=== PATIENT | female | born 1985 | race Caucasian/White ===

== ENCOUNTER 2020-09-20 10:31 | Outpatient (CLI) | payer OTHER, BC, SELFPAY ==
--- NOTE | 2020-09-20 | ECG_ITS ---
Measurements Intervals [place] Rate: 52 P: -37 NE: 166 QRS: 41 QRSD: 86 T: 47 QT: 412 QTc: 383 Interpretive Statements SINUS BRADYCARDIA BORDERLINE ECG Electronically Signed On 09-20-2020 12:06:47 INTERACTIVE [employer] DES[employer] by Juan Nicholson D.O.
[2020-09-20 11:27] LABS: Hematocrit 36.7 % (37.0-47.0); Hemoglobin 12.4 g/dL (12.0-15.0)
== END 2020-09-20 10:32 | disposition home or self-care (01) ==
PROVIDERS: PCP Internal Medicine; Visit Provider Anesthesiology
DX: Z86.2 Personal history of diseases of the blood and blood-forming organs and certain disorders involving the immune mechanism (principal); Z01.818 Encounter for other preprocedural examination
CPT/HCPCS: 36415; 85014; 85018; 93005

== ENCOUNTER 2020-09-22 01:05 | Day surgery (SDC) | payer OTHER, SELFPAY ==
[2020-09-14 16:29] VITALS: BMI 26.4
--- NOTE | 2020-09-21 15:27 | WPDANESEPPF ---
Anes - Initial Pre Proc Eval Procedure: Operation Date: 09/22/20 07:30 Proposed Procedures p Abdominoplasty - John Liao MD s Liposuction Of Abdomen - John Liao MD s Bilateral Breast Augmentation - John Liao MD Date/Time: 09/21/20 15:27 Surgeon: John Liao MD Pre Op Diagnosis: Micromastia, Skin Laxity Patient Data Age: 35 Gender: F Height: 1.55 m Weight: 63.5 kg Allergies Allergy/AdvReac Type Severity Reaction Status Date / Time metoclopramide [From Reglan] Allergy Intermediate Hyperactive Verified 09/14/20 16:27 morphine Allergy Intermediate Hives Verified 09/14/20 16:27 hydrocodone AdvReac Intermediate Vomiting Verified 09/14/20 16:27 Home Medications Medication Instructions Recorded Confirmed Type clonazepam 1 mg tablet 1 mg PO TID tablet 04/24/20 09/14/20 History clonidine HCl 0.1 mg tablet 0.1 mg PO DAILY tablet 04/24/20 09/14/20 History fluconazole 200 mg tablet 200 mg PO DAILY PRN 04/24/20 09/14/20 History hydroxyzine HCl 25 mg tablet 25 mg PO BID PRN 04/24/20 09/14/20 History lamotrigine 100 mg tablet 100 mg PO DAILY 04/24/20 09/14/20 History oxybutynin chloride 5 mg tablet 5 mg PO TID PRN 04/24/20 09/14/20 History trazodone 100 mg tablet 200 mg PO HS 04/24/20 09/14/20 History docusate sodium 100 mg capsule 100 mg PO DAILY #14 cap 08/31/20 09/14/20 Rx carisoprodol 350 mg tablet 350 mg PO TID PRN #21 tablet 09/04/20 09/14/20 Rx oxycodone-acetaminophen 5 mg-325 1 tablet PO Q6H PRN #15 tablet 09/04/20 09/14/20 Rx mg tablet enoxaparin 40 mg/0.4 mL 40 mg SUBCUT DAILY #5.6 ml 09/11/20 09/14/20 Rx subcutaneous syringe ferrous sulfate 28 mg PO DAILY 09/14/20 09/14/20 History Patient hx anesthesia problems: none Family hx anesthesia problems: none PMFSH Past Medical History Medical History (Updated 09/21/20 @ 15:28 by Davie Ochoa MD) Anxiety Bipolar 1 disorder Depression HTN (hypertension) Hx LEEP (loop electrosurgical excision procedure), cervix, IBS (irritable bowel syndrome) MVP (mitral valve prolapse) PTSD (post-traumatic stress disorder) Surgical History Surgical History History of cholecystectomy History of tonsillectomy Social History Social History Smoking status: Never smoker Second hand tobacco smoke exposure: No Alcohol intake: former Substance use: current Substance use type: marijuana Living arrangements: other Spiritual care concerns: No Anes - Eval Final PreProcedure Day of Procedure 09/21/20 15:27 Patient weight: overweight Heart: regular rate and rhythm Lungs: clear to auscultation and normal air movement Airway: Mallampati scale class II Neurological: alert and oriented Last oral intake: >/= 8 hours ASA classification: II Emergent: no Anesthetic plan: proceed Anesthesia type and monitoring: general LMA Informed Consent: The patient's anesthetic plan and its attendant risks and benefits were discussed with the patient/family/POA. Questions were solicited and answers provided to the satisfaction of the patient/family/POA.
[2020-09-22] VITALS (13 sets, daily range): BP systolic 108–132; BP diastolic 69–93; PULSE 64–112; RESP 13–20; TEMP 35.5–37.6; O2SAT 97–100
--- NOTE | 2020-09-22 06:54 | WPDHPUPDATE1 ---
History and Physical Update Update Date/Time: 09/22/20 06:54 History and Physical has been reviewed, including an updated exam of the patient. There are NO changes in the patient's condition. Risks, benefits, and alternatives have been discussed and questions answered. Patient agrees to proceed with procedure.
--- NOTE | 2020-09-22 07:06 | PM.PROC ---
Procedure Note - Detailed Date of procedure: 09/22/20 Pre-op diagnosis: Micromastia, Skin Laxity Post-op diagnosis: same Procedure performed: 1. Bilateral augmentation mammoplasty 2. Progressive tension abdominoplasty 3. Suction lipectomy of abdomen Description of procedure: Preoperatively the risks, benefits, alternatives were again today discussed with her and her significant other. I want them to be very realistic about the risks involved as well as expectations. On arrival she had significant fear about the IV starting. We had a lengthy conversation that this is small portion of the procedure there was significant recovery. I also have concerns as she needs Lovenox postoperatively. Her and her significant other were very consistent that she has always had a fear of IVs but they are fine with surgery and recovery including the Lovenox. I outlined this extensively because once we proceed with the procedure there was no turning back. Further without Lovenox given her family history there is always concern for pulmonary embolism and . I spent extensive time making sure they were well informed of the risks. Reminded of their discussion with the primary care and the primary care recommendations. I want to make sure she and her significant other were well informed and had every opportunity to cancel if that was their wishes. They were very consistent that this is only a concern of the IV, they are very confident in her decision and would like to proceed. They understand their primary care physician has recommended Lovenox following the procedure (as they discussed with their primary care) and they will comply. All questions answered and consent obtained. Marked in the preoperative holding area with their verification. The patient was taken to the operating room placed supine on the operating table. Anesthesia was provided by anesthesiology. A surgical time-out was taken. We cleansed the skin and 1% lidocaine and 0.25% Marcaine with epinephrine was used anesthetize as a field block. She was prepped and draped in a standard sterile fashion. Tegaderm nipple Jones were placed. A 15 blade used to make an incision along the inframammary fold. Dissection was continued at 45 degree angle until the chest wall as identified. I incised the pectoralis major along its inferior border and completely released the inferior border leaving the medial border intact. I created a subpectoral pocket in the appropriate dimensions based on our preoperative planning for the implant. I then copiously irrigated with saline solution and verified a strict hemostasis. Next the use a triple antibiotic and Betadine containing solution to irrigate the pocket. I washed my gloves with the triple antibiotic and Betadine solution. We washed the implant immediately upon opening it with this solution and only opened it when we needed it. I used implant funnel and no-touch technique. The implant was introduced into the pocket using the funnel. Having verified positioning of the implant this was closed using 2-0 Vicryl followed by 3-0 Monocryl in a running subcuticular 4-0 Monocryl followed by tissue glue. I then proceeded to the abdomen. I placed the patient in a flexed position to verify the upper and lower markings would reach. I then placed her supine. A thorough abdominal examination was completed. Stab incisions were made and used tumescent solution. Once adequate time for hemostasis using a 4 mm basket cannula based on modification S.A.F.E. technique was completed in multiple planes and passes to rolling pinch test as well as based on preoperative planning. We did the supine as well as turned her into the lateral decubitus position intraoperatively to make sure we had good contour. We then returned supine. A 10 blade was used to make the upper incision. I continued dissection down to the level of fascia. Elevated just what was necessary for repair of the diastasis and disco
[2020-09-22] MEDS: LACTATED RINGERS 1,000 ML 30 ML IV CONT ×2 (07:19→12:18)
[2020-09-22] MEDS: ceFAZolin 2 GM/D5W 50 ML 2 GM/50 ML BAG IVPB (07:35)
[2020-09-22 07:58] LABS: Urine Cotinine NEGATIVE
[2020-09-22] MEDS: LIDO 1%/EPINEPHRINE 1:100,000 50 ML VIAL 30 ML INFILTRATE (09:03)
[2020-09-22] MEDS: ONDANSETRON INJ 4 MG/2 ML VIAL IV PUSH ×2 (12:52→15:53)
[2020-09-22] MEDS: fentaNYL CITRATE INJ (*CRX) 100 MCG/2 ML VIAL IV PUSH ×2 (14:22→14:27)
[2020-09-22] MEDS: LACTATED RINGERS 1,000 ML 125 ML IV CONT (15:52)
[2020-09-22] MEDS: oxyCODONE/ACETAMINOPHEN (*CRX) 5-325 MG TABLET PO ×2 (16:00→22:33)
[2020-09-22] MEDS: carisoprodoL (*CRX) 350 MG TABLET PO (17:48)
[2020-09-22] MEDS: ENOXAPARIN 40 MG/0.4 ML SYRINGE SUB-Q (19:45)
[2020-09-22] MEDS: DOCUSATE SODIUM 100 MG CAPSULE PO (22:33)
[2020-09-23] MEDS: carisoprodoL (*CRX) 350 MG TABLET PO ×2 (00:17→06:50)
[2020-09-23 00:20] VITALS: BP 98/63; PULSE 79; RESP 14; TEMP 36.2; O2SAT 96
[2020-09-23] MEDS: ONDANSETRON INJ 4 MG/2 ML VIAL IV PUSH (04:14)
[2020-09-23] MEDS: oxyCODONE/ACETAMINOPHEN (*CRX) 5-325 MG TABLET PO ×2 (04:14→11:08)
[2020-09-23 04:20] VITALS: BP 93/56; PULSE 86; RESP 15; TEMP 36.4; O2SAT 97
[2020-09-23 08:10] VITALS: BP 97/61; PULSE 111; RESP 18; TEMP 37.2
--- NOTE | 2020-09-23 08:10 | PC.NURSE ---
This patient, Goldie Cota, was received from PACU per bed to room 282 on 09/22/20 at 1450. Patient/family oriented to unit policies and routines
[2020-09-23] MEDS: hydrOXYzine HCL 25 MG TABLET PO (08:12)
--- NOTE | 2020-09-23 08:32 | WPDPN ---
Progress Note: A&P Assessment and Plan (1) Micromastia: Code(s): N64.82 - Hypoplasia of breast Status: Acute Assessment and Plan: Doing well after bilateral augmentation mammoplasty, suction lipectomy of the abdomen, and progressive tension abdominoplasty. Will discharge home. I will see her back in 1 week. Medication should have been sent from [facility]. She states when she went a few days ago she only received one of the medications. She is going to reach out and verify those medications have been received. Today we had a 20 minutes conversation about the care. What monitor for. What is an emergency. The critical importance of Lovenox as recommended by her PCP given her family history. We discussed drug interactions with medications she currently takes. What monitor for. I made sure answered all of her questions to her satisfaction today. We will see her back. (2) Skin laxity: Code(s): L57.4 - Cutis laxa senilis Status: Acute (3) Family history of blood clots: Code(s): Z82.49 - Family history of ischemic heart disease and other diseases of the circulatory system Status: Acute Time Spent With Patient Time: 20 minutes Review of Systems Review of Systems: All systems reviewed & are unremarkable except as noted in HPI and below Exam Narrative: Exam Narrative: Alert and oriented. No obvious distress. Appears relaxed and comfortable. Bilateral breasts are healing well. No signs of infection. No hematoma. No seroma. Abdomen is healing well. There is no signs of infection. No hematoma. No seroma. Good color and capillary refill. No calf tenderness. Negative Homans. Objective Data Vital Signs Vital Signs: Vital Signs - 24 hr 09/22/20 12:18 09/22/20 12:30 09/22/20 12:45 Temperature 35.6 C L 35.5 C L 35.6 C L Pulse Rate 70 112 H 106 H Respiratory Rate 20 13 17 Blood Pressure 122/69 127/78 126/82 Pulse Oximetry 98 100 100 09/22/20 13:00 09/22/20 13:15 09/22/20 13:30 Temperature 35.7 C L 35.8 C L 35.8 C L Pulse Rate 94 94 94 Respiratory Rate 19 19 19 Blood Pressure 108/91 H 128/93 H 131/90 Pulse Oximetry 100 100 100 09/22/20 13:45 09/22/20 14:00 09/22/20 14:15 Temperature 36.9 C Pulse Rate 66 64 66 Respiratory Rate 14 18 14 Blood Pressure 129/84 120/80 125/85 Pulse Oximetry 100 100 100 09/22/20 14:50 09/22/20 15:10 09/22/20 19:55 Temperature 36.6 C 37.6 C Pulse Rate 70 70 78 Respiratory Rate 16 16 15 Blood Pressure 132/82 119/77 Pulse Oximetry 97 97 98 09/23/20 00:20 09/23/20 04:20 Temperature 36.2 C L 36.4 C Pulse Rate 79 86 Respiratory Rate 14 15 Blood Pressure 98/63 L 93/56 L Pulse Oximetry 96 97 Intake/Output Intake/Output: Intake & Output 09/20/20 09/21/20 09/22/20 09/23/20 23:59 23:59 23:59 23:59 Intake Total 1172 Output Total 1925 300 Balance -753 -300 Meds/Results Medications: Active Medications Generic Name Dose Route Start Last Admin Trade Name Freq PRN Reason Stop Dose Admin Carisoprodol 350 mg 09/22/20 18:00 09/23/20 06:50 Carisoprodol (*Crx) 350 Mg Tablet PO 350 mg Q6HR ZENON Administration Clonidine HCl 0.1 mg 09/23/20 09:00 Clonidine Hcl 0.1 Mg Tablet PO DAILY ZENON Docusate Sodium 100 mg 09/22/20 21:00 09/22/20 22:33 Docusate Sodium 100 Mg Capsule PO 100 mg Q12HR ZENON Administration Enoxaparin Sodium 40 mg 09/22/20 19:00 09/22/20 19:45 Enoxaparin 40 Mg/0.4 Ml Syringe SUB-Q 40 mg Q24H ZENON Administration Fluconazole 200 mg 09/22/20 15:19 Fluconazole 100 Mg Tablet PO DAILY PRN yeast infections Hydromorphone HCl 0.5 mg 09/22/20 12:06 Hydromorphone Hcl Inj (*Crx) 1 Mg/Ml Syr IV PUSH Q3H PRN Pain Rated 7-10 Hydroxyzine HCl 25 mg 09/22/20 15:09 09/23/20 08:12 Hydroxyzine Hcl 25 Mg Tablet PO 25 mg BID PRN Administration sleep/nausea Lactated Ringer's 1,000 mls @ 125 mls/hr 09/22/20 12:
--- NOTE | 2020-09-23 08:35 | PM.DS ---
DS: Admitting Diagnosis Admitting Diagnosis Admitting Diagnosis: Macromastia Skin laxity Localized adiposity Family history of blood clots DS: Discharge Diagnosis Discharge Diagnosis (1) Micromastia: Code(s): N64.82 - Hypoplasia of breast Status: Acute Assessment and Plan: Doing very well after bilateral augmentation mammoplasty, suction lipectomy of the abdomen, and progressive tension abdominoplasty. Will discharge home. (2) Skin laxity: Code(s): L57.4 - Cutis laxa senilis Status: Acute (3) Localized adiposity: Code(s): E65 - Localized adiposity Status: Acute (4) Family history of blood clots: Code(s): Z82.49 - Family history of ischemic heart disease and other diseases of the circulatory system Status: Acute DS: Summary Hospital Course Hospital Course: Patient underwent bilateral augmentation mammoplasty, suction lipectomy of abdomen, and progressive tension abdominoplasty. She has done very well. Ambulating. Pain controlled. Tolerating diet. No evidence of DVT or pulmonary embolism. Will discharge home. Follow-up. Time Spent with Patient Time attestation: Total time spent providing and/or coordinating discharge services: 20 minutes Exam Narrative: Exam Narrative: Alert and oriented. No obvious distress. Appears relaxed and comfortable. Bilateral breasts are healing well. No signs of infection. No hematoma. No seroma. Abdomen is healing well. There is no signs of infection. No hematoma. No seroma. Good color and capillary refill. No calf tenderness. Negative Homans. Discharge Plan Discharge Patient Disposition: Home, Self-Care Discharge Instructions: POST OPERATIVE DISCHARGE INSTRUCTIONS FOR: Breast Augmentation / Abdominoplasty / Liposuction JOHN LIAO M.D. [facility] [address] [place] [address] [address] for 24 hours after anesthesia and while you are taking pain medication. Take all prescribed medication as directed Diet as tolerated. Begin gentle shoulder rolls and arm stretches 10 times per hour. No lifting or activity that raises blood pressure for 48 hours. Regular walking / ambulation. No straining or lifting over 20 pounds for 6 weeks. Slowly stand up straight as tolerated No showering until directed to. No pools or tubs for 2 weeks. Call with any questions or concerns. Lovenox shots daily as directed by Primary Care Physician If you have surgery Friday through : Keep dressings dry and intact and keep bra on. We will remove the bra and all dressings at your next day follow-up. You may shower after your follow up appointment at Dr. Liao's office. Do not take pain medication before showering as the combination of medication and heat may cause you to feel dizzy or pass out. Let soap and water run over your incisions. Do not scrub or directly wash your incision. Replace the surgical bra and wear it 23 hours per day. If you have surgery on Friday After 24 hours you may remove the dressings and bra. At this point my may shower. Do not take pain medication before showering as the combination of medication and heat may cause you to feel dizzy or pass out. Let soap and water run over your incisions. Do not scrub or directly wash your incision. Replace the surgical bra and wear it 23 hours per day. If you have any questions or concerns, please call the office . If it is after hours you will be directed to the consulting psychiatrist exchange. Shortness of breath, chest pain, or other medical emergency dial 911 / proceed to the Emergency Room. Patient Instructions: Enoxaparin (By injection) Stand Alone Forms: General Discharge Instructions Follow-up/Referrals: John Liao MD [Physician] - 1 Week Discharge Medications: Continued trazodone 100 mg tablet 200 mg PO HS RF: 0 clonazepam [Klonopin] 1 mg tablet
[2020-09-23] MEDS: HYDROmorphone HCL INJ (*CRX) 1 MG/ML SYR 0.5 MG IV PUSH (09:38)
[2020-09-23] MEDS: DOCUSATE SODIUM 100 MG CAPSULE PO (09:39)
--- NOTE | 2020-09-23 10:18 | WPDANESPN ---
Anes - Prog Note Post-Op Date/Time: 09/23/20 10:18 Cardiovascular status: normal Respiratory status: normal Airway patency: baseline Mental status: baseline Post-Op hydration status: normal Vital Signs: Last Vital Signs Temp 36.4 C 09/23/20 04:20 Pulse 86 09/23/20 04:20 Resp 15 09/23/20 04:20 BP 93/56 L 09/23/20 04:20 Pulse Ox 97 09/23/20 04:20 Pain Score (VAS): no complaints I/O: Intake & Output 09/22/20 09/23/20 09/23/20 23:59 07:59 15:59 Intake Total 1022 Output Total 1450 300 Balance -428 -300 Post-procedural complaints: none Patient Feedback: Patient satisfied with anesthetic care.
--- NOTE | 2020-09-23 11:15 | PC.NURSE ---
Pt given additional abdominal binder for home use. Pt has some surgical bras at home. Pt states she has already picked up her colace and lovenox at the pharmacy. RN verified that [facility] had received the orders for her Soma and her Percocet. Pt and her boyfriend aware that the RX should be at the pharmacy now. Pt aware of the times she is able to take her medications again and that she should continue taking all her normal home medications. Reviewed lovenox administration. Info given and pt and boyfriend aware that the pharmacy can give additional information. Pt also given order from Dr. Thompson for a follow up EKG. Pt aware that she should contact her primary care provider for insurance verification per Dr. Thompson's order.
== END 2020-09-23 11:30 | disposition home or self-care (01) ==
LOC: ANHSURGERY 07:37 → ANHOB2 15:10
PROVIDERS: PCP Internal Medicine; Visit Provider Surgery Plastic and Reconstructive Surgery
PROC: (CPT 19325; principal; 2020-09-22 07:30)
PROC: (CPT 15877; 2020-09-22 07:30)
PROC: (CPT 19325; 2020-09-22 07:30)
DX: Z41.1 Encounter for cosmetic surgery (principal); N64.82 Hypoplasia of breast; L57.4 Cutis laxa senilis; I10 Essential (primary) hypertension; I34.1 Nonrheumatic mitral (valve) prolapse; K58.9 Irritable bowel syndrome, unspecified; F31.9 Bipolar disorder, unspecified; F41.9 Anxiety disorder, unspecified; F43.10 Post-traumatic stress disorder, unspecified; Z79.899 Other long term (current) drug therapy; F12.90 Cannabis use, unspecified, uncomplicated; Z82.49 Family history of ischemic heart disease and other diseases of the circulatory system
CPT/HCPCS: 19325; 15877; 15830; 15847; 80307; 99199; A9270; C9290; J0171; J0330; J0690; J1100; J1170; J1580; J1650; J2250; J2405; J2704; J3010; J7030; J7120

== ENCOUNTER 2021-04-06 19:12 | Emergency (ER) | payer BC, SELFPAY ==
[2021-04-06 19:23] VITALS: BP 130/77; PULSE 86; RESP 16; TEMP 36.8; O2SAT 99
--- NOTE | 2021-04-06 19:37 | ED.FEMALEGU ---
HPI - Female Genitourinary General Chief complaint: Urogenital-Female Stated complaint: Vaginal Infection Time Seen by Provider: 04/06/21 19:38 Source: patient and RN notes reviewed Mode of arrival: ambulatory Limitations: no limitations History of Present Illness HPI Narrative: 35-year-old female presents with concern for possible bacterial vaginosis. She reports frequent BV infections because she takes frequent antibiotics for urinary tract infections. Reports her last urinary tract infection was approximately a month ago, her last BV infection was just prior to that. She denies abnormal vaginal bleeding, abdominal pain, dysuria, frequency, urgency, flank pain, nausea, vomiting, diarrhea. She denies any vaginal irritation or excoriation or itching. She reports foul-smelling discolored vaginal discharge. Reports symptoms are typical for her BV infections. She has not concerned about STDs, reports there is no chance of MD elicited complaint: vaginal discharge Related Data Home Medications Medication Instructions Recorded Confirmed clonidine HCl 0.1 mg tablet 0.1 mg PO DAILY tablet 04/24/20 09/22/20 oxybutynin chloride 5 mg tablet 5 mg PO TID PRN 04/24/20 09/14/20 trazodone 100 mg tablet 200 mg PO HS 04/24/20 09/14/20 Allergies Allergy/AdvReac Type Severity Reaction Status Date / Time metoclopramide [From Reglan] Allergy Intermediate Hyperactive Verified 11/01/20 15:54 morphine Allergy Intermediate Hives Verified 11/01/20 15:54 hydrocodone AdvReac Intermediate Vomiting Verified 11/01/20 15:54 Review of Systems Review of Systems: CONSTITUTIONAL: Denies malaise, chills, sweats, or fever. GASTROINTESTINAL: Denies abdominal pain, nausea, vomiting, diarrhea, bloody, or mucous stools. GENITOURINARY: Denies dysuria or hematuria. Reports foul smelling and discolored vaginal discharge since yesterday SKIN: Denies vaginal rash or itching. MUSCULOSKELETAL: Denies back pain or myalgia. on. All systems reviewed & are unremarkable except as noted in HPI and below PMFSH Past Medical History Medical History Anxiety Bipolar 1 disorder Depression HTN (hypertension) Hx LEEP (loop electrosurgical excision procedure), cervix, IBS (irritable bowel syndrome) MVP (mitral valve prolapse) PTSD (post-traumatic stress disorder) Surgical History Surgical History History of cholecystectomy History of tonsillectomy Social History Social History Smoking status: Never smoker Second hand tobacco smoke exposure: No Alcohol intake: former Alcohol use details: 2 glasses of wine a month Substance use: current Substance use type: marijuana Spiritual care concerns: No Comments At time of signature, agree with nursing past medical, surgical, social and family history. There is no relevant family history pertinent to the presenting complaint Exam Narrative: GENERAL: Well-appearing, well-nourished, and in no acute distress. HEAD: Normocephalic EYES: PERRLA, sclera clear ENT: Nares clear NECK: Supple. CHEST: No respiratory distress. Speaks in full sentences. HEART: Regular rate and rhythm ABDOMEN: Soft, nontender, nondistended, no CVA tenderness SKIN: Warm, dry, no visible rash. NEURO: Alert and oriented x3. PSYCH: Normal mood and affect Patient declines pelvic exam Course Course Emergency Course: Patient is aware of diagnosis, understands and agrees to treatment plan. Anticipatory guidance given. Patient agrees to follow-up as directed and is aware of reasons to seek care at the emergency department. Portions of this record may have been created with voice recognition software Vital Signs Vital signs: Vital Signs Temperature 98.3 F 04/06/21 19:23 Pulse Rate 86 04/06/21 19:23 Respiratory Rate 16 04/06/21 19:23 Bloo
== END 2021-04-06 19:48 | disposition home or self-care (01) ==
PROVIDERS: Emergency Provider Nurse Practitioner; PCP Internal Medicine
DX: N89.8 Other specified noninflammatory disorders of vagina (principal); I10 Essential (primary) hypertension; I34.9 Nonrheumatic mitral valve disorder, unspecified; F32.9 Major depressive disorder, single episode, unspecified; F41.9 Anxiety disorder, unspecified
CPT/HCPCS: 99213; G0463

== ENCOUNTER 2022-08-08 13:10 | Emergency (ER) | payer BC, SELFPAY ==
[2022-08-08] VITALS (17 sets, daily range): BP systolic 114–130; BP diastolic 72–86; PULSE 74–115; RESP 14–19; TEMP 36.4; O2SAT 94–99
--- NOTE | ~2022-08-08 | CT_ITS ---
EXAMINATION: CT brain wo con DATE: 08/08/2022 15:17 INDICATION: Syncope. TECHNIQUE: Computed tomography (CT) of the head was performed without intravenous contrast. The mA wa s adjusted according to patient size. Iterative reconstruction technique was employed. The dose-lengt h product was 605.33 mGy-cm. COMPARISON: None FINDINGS: There is no intracranial hemorrhage, acute infarction, or abnormal intracranial mass lesion . The ventricles are normal in size. The orbits are normal. The paranasal sinuses are clear. The mast oid air cells are normal. IMPRESSION: 1. Normal brain. Reviewed, dictated and finalized at location A. [employer] VICE PRESIDENT IMPRESSION: 1. Normal brain.
--- NOTE | ~2022-08-08 | XR_ITS ---
EXAMINATION: XR chest 1V portable 08/08/2022 15:25 INDICATION: Syncope. Chest pain and nausea. PROCEDURE: AP portable chest COMPARISON: No prior studies for comparison. FINDINGS: The lungs are clear. The cardiomediastinal silhouette is within normal limits. There are no pleural effusions. There is no pneumothorax suspected. IMPRESSION: 1: NO ACUTE CARDIOPULMONARY DISEASE. Reviewed, dictated and finalized at location A. L KEEPER
--- NOTE | 2022-08-08 14:18 | PC.NURSE ---
Patient ambulatory to the BR with steady gait.
--- NOTE | 2022-08-08 14:31 | ED_ITS ---
HPI - Syncope General Chief Complaint: Syncope Stated Complaint: unknown Time Seen by Provider: 08/08/22 13:39 Related Data Home Medications Medication Instructions Recorded Confirmed clonidine HCl 0.1 mg tablet 0.1 mg PO DAILY 04/24/20 09/22/20 trazodone 100 mg tablet 200 mg PO HS 04/24/20 09/14/20 Allergies Allergy/AdvReac Type Severity Reaction Status Date / Time metoclopramide [From Reglan] Allergy Intermediate Hyperactive Verified 08/08/22 13:21 morphine Allergy Intermediate Hives Verified 08/08/22 13:21 hydrocodone AdvReac Intermediate Vomiting Verified 08/08/22 13:21 [facility] Past Medical History Medical History Anxiety Bipolar 1 disorder Depression HTN (hypertension) Hx LEEP (loop electrosurgical excision procedure), cervix, IBS (irritable bowel syndrome) MVP (mitral valve prolapse) PTSD (post-traumatic stress disorder) Surgical History Surgical History History of cholecystectomy History of tonsillectomy Social History Social History Smoking status: Never smoker Second hand tobacco smoke exposure: No Alcohol intake: former Alcohol use details: 2 glasses of wine a month Substance use: current Substance use type: marijuana Living arrangements: other Spiritual care concerns: No Course Vital Signs Vital signs: Vital Signs Temperature 36.4 C 08/08/22 13:11 Pulse Rate 83 08/08/22 13:11 Respiratory Rate 16 08/08/22 13:11 Blood Pressure 126/79 08/08/22 13:11 Pulse Oximetry 98 08/08/22 13:11 Temperature 36.4 C 08/08/22 13:11 Pulse Rate 84 08/08/22 13:48 Respiratory Rate 15 08/08/22 13:48 Blood Pressure 118/73 08/08/22 13:48 Pulse Oximetry 98 08/08/22 13:48 Oxygen Delivery Room Air 08/08/22 13:51 MDM - Syncope Lab Data Labs: UCG Bedside Result Negative Reference Range: Negative Discharge Plan Discharge Prescriptions: No Action trazodone 100 mg tablet 200 mg PO HS clonidine HCl 0.1 mg tablet 0.1 mg PO DAILY magnesium citrate Solution 150 ml PO DAILY PRN (Reason: constipation) Qty: 296 0RF lamotrigine [Lamictal] 100 mg tablet 100 mg PO DAILY Qty: 90 0RF clonazepam [Klonopin] 1 mg tablet 1 mg PO TID Qty: 90 0RF hydroxyzine HCl 25 mg tablet 25 mg PO BID PRN (Reason: sleep/nausea ) Qty: 60 0RF ondansetron HCl 8 mg tablet 8 mg PO Q8H Qty: 40 0RF pantoprazole 40 mg tablet,delayed release (DR/EC) 40 mg PO QAM Qty: 30 1RF Follow-up/Referrals: Ravinder Haddad DO [Primary Care Provider] -
--- NOTE | 2022-08-08 14:49 | ED.SYNCOPE ---
HPI - Syncope General Chief Complaint: Syncope Stated Complaint: unknown Time Seen by Provider: 08/08/22 13:39 History of Present Illness HPI narrative: 37-year-old female presents to the ER today by EMS after having an episode of possible syncope at home. She says that she was sitting on the floor doing her make-up and she was feeling lightheaded at the time but continued to do her make-up. And then she says the next thing she knew she woke up lying on the floor. She is not sure if she passed out or if she had a seizure. She says that she feels dizzy and weird/tingly all over. She says that she has not slept for 7 days other than getting an occasional hour. She has history of chronic insomnia but says that her trazodone stopped working. She is also having pain across her lower abdomen. She has not had her period for 2 months. she has a history of tubal ligation. Related Data Home Medications Medication Instructions Recorded Confirmed clonidine HCl 0.1 mg tablet 0.1 mg PO DAILY 04/24/20 09/22/20 trazodone 100 mg tablet 200 mg PO HS 04/24/20 09/14/20 Allergies Allergy/AdvReac Type Severity Reaction Status Date / Time metoclopramide [From Reglan] Allergy Intermediate Hyperactive Verified 08/08/22 13:21 morphine Allergy Intermediate Hives Verified 08/08/22 13:21 hydrocodone AdvReac Intermediate Vomiting Verified 08/08/22 13:21 Review of Systems Review of Systems: CONSTITUTIONAL: Feels shaky and hypersensitive EYES: Denies visual changes, redness, or discharge. ENT: Denies rhinorrhea, congestion, sore throat, or otalgia. CARDIOVASCULAR: Denies chest pain, palpitations, or edema. RESPIRATORY: Denies cough or dyspnea. GASTROINTESTINAL: reports pain across lower abdomen, no vomiting or diarrhea GENITOURINARY: Denies dysuria or hematuria. SKIN: Denies rash or itching. MUSCULOSKELETAL: Denies back pain, joint pain, or myalgia. NEUROLOGIC: possible syncope PSYCHIATRIC: anxiety, insomnia PMFSH Past Medical History Medical History Anxiety Bipolar 1 disorder Depression HTN (hypertension) Hx LEEP (loop electrosurgical excision procedure), cervix, IBS (irritable bowel syndrome) MVP (mitral valve prolapse) PTSD (post-traumatic stress disorder) Surgical History Surgical History History of cholecystectomy History of tonsillectomy Social History Social History Smoking status: Never smoker Second hand tobacco smoke exposure: No Alcohol intake: former Alcohol use details: 2 glasses of wine a month Substance use: current Substance use type: marijuana Living arrangements: other Spiritual care concerns: No Exam Narrative: GENERAL: Well-appearing, well-nourished, and in no acute distress. HEAD: Normocephalic, atraumatic. EYES: PERRLA and EOMI. NECK: Supple. CHEST: Clear to auscultation. No respiratory distress. No wheezes rales or rhonchi HEART: Regular rate and rhythm. No murmur heard. Normal peripheral pulses. ABDOMEN: Soft, nondistended, normal active bowel sounds. generalized tenderness across lower abdomen, no focal tenderness EXTREMITIES: Normal range of motion. No edema. SKIN: Warm, dry, no rash. NEURO: No focal deficits. Alert and oriented x3. PSYCH: Normal mood and affect. Course Vital Signs Vital signs: Vital Signs Temperature 36.4 C 08/08/22 13:11 Pulse Rate 83 08/08/22 13:11 Respiratory Rate 16 08/08/22 13:11 Blood Pressure 126/79 08/08/22 13:11 Pulse Oximetry 98 08/08/22 13:11 Temperature 36.4 C 08/08/22 13:11 Pulse Rate 74 08/08/22 16:53 Respiratory Rate 16 08/08/22 16:53 Blood Pressure 130/86 08/08/22 16:53 Pulse Oximetry 99 08/08/22 16:53 Oxygen Delivery Room Air 08/08/22 13:51 MDM - Syncope Differential Diagnosis Differential diagnosis: Likely syncop
--- NOTE | 2022-08-08 14:52 | ECG_ITS ---
Measurements Intervals [place] Rate: 74 P: 63 CO: 171 QRS: 38 QRSD: 90 T: 58 QT: 399 QTc: 445 Interpretive Statements SINUS RHYTHM BASELINE ARTIFACT- I, II, III, AVR, AVL, AVF, V1-V6 NORMAL ECG COMPARED TO ECG 09/20/2020 11:24:05 SINUS RHYTHM NOW PRESENT Electronically Signed On 08-08-2022 16:35:21 INTERACTIVE [employer] SPECIALIST by Juan Nicholson D.O.
[2022-08-08 15:21] LABS: Basophils Absolute Auto 0.1 K/mm3 (0.0-0.1); Basophils Percent Auto 0.6 % (0.2-1.2); Eosinophils Percent Auto 0.3 % (0-4.4); Hemoglobin 14.3 g/dL (12.0-15.0); Immature Granulocyte Absolute 0.06 K/mm3 (0.00-0.031); Immature Granulocyte Percent A 0.6 % (0-0.5); Lymphocytes Absolute Auto 1.73 K/mm3 (0.9-3.2); Mean Corpuscular Hemoglobin 29.6 pg (26-34); Mean Platelet Volume 8.6 fl (7.4-10.4); Monocytes Absolute Auto 0.6 K/mm3 (0.1-0.6); Monocytes Percent Auto 5.7 % (2.6-8.5); Neutrophils Absolute Auto 8.3 K/mm3 (1.3-6.7); Neutrophils Percent Auto 76.8 % (45.5-73.1); Platelet Count Result 366 k/mm3 (150-375); Red Blood Count 4.83 M/mm3 (4.2-5.4); Red Cell Distribution Width 12.6 % (11.5-14.5); White Blood Count 10.8 K/mm3 (4.5-10.0)
[2022-08-08 15:24] LABS: Appearance Urine Clear (Clear); Bilirubin Urine Negative (Negative); Blood Urine Negative (Negative); Color Urine Yellow (Yellow); Glucose Urine UA Trace mg/dL (Negative); Ketones Urine Trace mg/dL (Negative); Leukocyte Esterase Ur Negative LEU/UL (Negative); Nitrate Urine Positive (Negative); Protein Urine 1+ mg/dL (Negative); Specific Grav Ur 1.015 (1.001-1.035); Urobilinogen Urine 0.2 mg/dL (<2.0)
[2022-08-08 15:29] LABS: Bacteria Urine 4+ /hpf; Mucus Urine Rare /lpf; RBC Urine 0-2 /hpf (0-2); Squamous Epithelial Cell Urine Occasional /hpf (Few); WBC Urine 0-3 /hpf
[2022-08-08] MEDS: LORazepam INJ (*CRX) 2 MG/ML VIAL 0.5 MG IV PUSH (15:29)
[2022-08-08] MEDS: SODIUM CHLORIDE 0.9% IV 1,000 ML 999 ML IV CONT (15:29)
[2022-08-08 15:30] LABS: Add Urine Microscopic? YES
[2022-08-08 15:32] LABS: Alanine Aminotransferase 15 U/L (6-35); Albumin Level 4.4 g/dL (3.5-5.1); Alkaline Phosphatase 55 U/L (38-126); Anion Gap 9 mmol/L (8-16); Aspartate Amino Transferase 21 U/L (14-36); Bilirubin,Total 0.6 mg/dL (0.2-1.3); Blood Urea Nitrogen 6 mg/dL (7-17); Carbon Dioxide 21 mmol/L (22-30); Chloride 110 mmol/L (98-107); Estimated CRCL calculation 66 ml/min; Estimated Glomerular Filt Rate > 60; Glucose 108 mg/dL (65-110); Potassium 3.7 mmol/L (3.4-5.0); Sodium 140 mmol/L (137-145)
[2022-08-08 15:38] LABS: D Dimer 0.39 ug/mL (<0.48)
[2022-08-08 15:44] LABS: Troponin I < 0.012 ng/mL (0.000-0.034)
== END 2022-08-08 16:54 | disposition home or self-care (01) ==
PROVIDERS: Emergency Provider Nurse Practitioner Family; PCP Family Medicine
DX: R55 Syncope and collapse (principal); N30.00 Acute cystitis without hematuria; G47.00 Insomnia, unspecified; I10 Essential (primary) hypertension; K58.9 Irritable bowel syndrome, unspecified; I34.1 Nonrheumatic mitral (valve) prolapse; F31.9 Bipolar disorder, unspecified; F41.9 Anxiety disorder, unspecified; F43.10 Post-traumatic stress disorder, unspecified
CPT/HCPCS: 36415; 70450; 71045; 80053; 81001; 81025; 83735; 84484; 85025; 85380; 93005; 96361; 96365; 96375; 99284; J0696; J2060; J7030

== ENCOUNTER 2024-09-21 12:31 | Outpatient (CLI) | payer OTHER, SELFPAY ==
--- NOTE | 2024-09-21 12:41 | ECHO_ITS ---
Patient Info Name: Goldie Aceves Huddleston Age: 39 years : 1985 Gender: Female Ht: 61 in Wt: 165 lbs BSA: 1.82 m2 HR: 99 bpm BP: 128 / 90 mmHg Heart Rhythm: Sinus Rhythm Technical Quality: Good Exam Date: 09/21/2024 12:43 PM Exam Location: Echo Lab Patient Status: Outpatient Admit Date: 09/21/2024 Staff Ordering Physician: Juan Nicholson DO Manager Drug Safety: Trisha Nogueira RDCS Attending Provider: Juan Nicholson DO Referring Physician: Bharat FELICIANO; Exam Type: CA echo doppler color flow Study Info Indications I34.1 - Nonrheumatic mitral (valve) prolapse Complete two-dimensional, color flow and Doppler transthoracic echocardiogram is performed. Summary 1. Complete two-dimensional, color flow and Doppler transthoracic echocardiogram is performed. 2. Left ventricular chamber dimension is normal. 3. Left ventricular systolic function is normal, estimated at 60-65%. 4. The left ventricular diastolic function is grade I diastolic dysfunction. 5. E/e' 6 is not elevated. 6. There is trace tricuspid valve regurgitation. 7. No pulmonary hypertension, estimated pulmonary arterial systolic pressure is 23 mmHg. 8. There is trace pulmonic regurgitation. Left Ventricle E/e' 6 is not elevated. Left ventricular chamber dimension is normal. Left ventricular systolic function is normal, estimated at 60-65%. The left ventricular diastolic function is grade I diastolic dysfunction. Right Ventricle Right ventricular systolic function is normal and with normal TAPSE 1.8 cm. Right ventricular chamber dimension is normal. Left Atria Left atrial chamber dimension is normal. Right Atria Right atrial chamber dimension is normal. Aortic Valve The aortic valve is trileaflet. There is no aortic valve stenosis. There is no aortic valve regurgitation. Pulmonic Valve There is trace pulmonic regurgitation. Mitral Valve No mitral valve prolapse. There is no mitral valve stenosis. There is no mitral valve regurgitation. Tricuspid Valve There is trace tricuspid valve regurgitation. No pulmonary hypertension, estimated pulmonary arterial systolic pressure is 23 mmHg. Pericardium/Pleural There is no pericardial effusion. Inferior Vena Cava Normal inferior vena cava with >50% collapse upon inspiration consistent with normal right atrial pressure, 5 mmHg. Aorta The aortic root size at the sinus of Valsalva is normal. Left Ventricular Outflow Tract Name Value Normal LVOT 2D LVOT Diameter 2.0 cm LVOT Doppler LVOT Peak Velocity 84 cm/s LVOT Peak Gradient 3 mmHg LVOT Mean Gradient 2 mmHg LVOT VTI 14 cm LVOT VTI/AV VTI Ratio 0.8 LVOT Stroke Volume 47 ml LVOT CO 4.6 l/min LVOT CI 2.5 l/min/m2 Pulmonic Valve Name Value Normal RVOT Doppler RVOT Peak Gradient 2 mmHg PV Doppler PV Peak Velocity 129 cm/s PV Peak Gradient 7 mmHg Mitral Valve Name Value Normal MV Doppler MV Decel Meade 583 cm/s2 MV PHT 31 ms MV Area (PHT) 7.2 cm2 4.0-5.0 MV Diastolic Function MV E Peak Velocity 61 cm/s MV A Peak Velocity 78 cm/s MV E/A 0.8 MV Decel Time 105 ms MV Annular TDI MV Septal e' Velocity 7.9 cm/s >=8.0 MV E/e' (Septal) 7.8 <=8.0 MV Lateral e' Velocity 10.1 cm/s >=10.0 MV E/e' (Lateral) 6.1 <=8.0 MV e' Average 8.96 MV E/e' (Average) 7.0 Tricuspid Valve Name Value Normal TV Regurgitation Doppler TR Peak Velocity 209 cm/s TR Peak Gradient 18 mmHg Estimated PAP/RSVP RA Pressure 5 mmHg <=5 PA Systolic Pressure 23 mmHg <36 RV Systolic Pressure 23 mmHg <36 TV Annular TDI TV Lateral [place] s' Velocity 11.3 cm/s 9.5-18.7 Aorta Name Value Normal Ascending Aorta Ao Root Diameter (MM) 3.2 cm Ao Root Diam Index (MM) 1.8 cm/m2 Ao [place] Diameter 2.2 cm 2.3-2.9 Aortic Valve Name Value Normal AV Doppler AV Peak Velocity 112 cm/s AV Peak Gradient 5 mmHg AV Mean Gradient 3 mmHg AV VTI 19 cm AV Area (Cont Eq VTI) 2.5 cm2 >=3.0 AV Area (Cont Eq Luis) 2.4 cm2 AV V1/V2 Ratio 0.75 AV Regurgitation 2D LVOT Area 3.3 cm2 Ventricles Name Value Normal LV Dimensions 2D/MM IVS Diastolic Thickness (2D) 0.9 cm 0.6-1.0 LVID Diastole (2D) 4.7 cm 3.8-5.2 LVIW Diastolic Thickness (2D) 0.9 cm 0.6-0.9 LVID Systole (2D) 3.2 cm 2.2-3.5 LVOT Diameter 2.0 cm LV Mass (2D Cubed) 142.64 g 67.00-162.00 LV Mass Index (2D Cubed) 78 g/m2 43-95 Relative Wall Thickness (2D) 0.38 LV Fractional Shortening/Ejection Fraction 2D/MM LV Fractional Shortening (2D) 32 % 27-45 LV EF (2D Teicholz) 61 % 54-74 LV Diastolic Volume (4C MOD) 36 ml LV EF (4C MOD) 63 % LV Diastolic Volume (2C MOD) 57 ml LV EF (2C MOD) 60 % LV Diastolic Volume (BP MOD) 48 ml 46-106 LV Diastolic Volume Index (BP MOD) 26 ml/m2 29-61 LV Systolic Volume (BP MOD) 19 ml 14-42 LV Systolic Volume Index (BP MOD) 10 ml/m2 8-24 LV EF (BP MOD) 60 % 54-74 LV Diastolic Length (4C) 7.5 cm LV Systolic Length (4C) 6.1 cm LV Stroke Volume (4C MOD) 22 ml Atria Name Value Normal LA Dimensions LA Volume (4C A-L) 25 ml LA Volume (BP A-L) 25 ml RA Dimensions RA Area (4C) 11.1 cm2 <=18.0 Report Signatures
--- OUTSIDE RECORDS SUMMARY | 2024-09-21 13:49 | XMS_ITS | Data Portability ---
Author Organization [facility] [place] Address [address] [place] [address] Care Team Providers Care High Voltage Electrician Name Role Phone WILLIAM NUÑEZ Primary Care Provider Assessment No assessment recorded. Plan of Treatment Reminders Order Date Submit Date Provider Last Modified By Organization Details Last Modified Time Details Appointments None recorded. Lab HbA1c (hemoglobin A1c), blood 2021 [facility] (Lab), [address], [place], [address], 07:19:32 Referral None recorded. Procedures None recorded. Surgeries None recorded. Imaging None recorded. Medication Orders Diflucan 200 mg tablet 2021 022 [place] [address] [id number], [address] [place], [address], 13:52:59 Diflucan 200 mg tablet 2021 022 [place] [address] [id number], [address] [place], [address], 2 13:52:59 metronidazo le 0.75 % (37.5 mg/5 gram) vaginal gel 2021 022 [place] [address] [id number], [address] [place], [address], 17:11:13 metronidazo le 500 mg tablet 2020 021 [email or web address] [facility], [address] [place], [address], 2 13:52:31 Diflucan 150 mg tablet 2020 021 [email or web address] [id number], [address] [place], [address], 14:19:35 Patient TargetsNo targets recorded. Patient InstructionsNo instructions recorded. Reason for Referral None Reported. Results Created Date Observation Date Name Description Value Unit Range Abnormal Flag Note LastModifiedBy Organization Detail LastModifiedTime 06/27/2006/27/2021 CT/GC AND TRICH OMONA S VAGIN SHI (RRNA ), SWAB chlamydia trachomatis, PCR Negati ve negati ve Not Available [facility] (Lab) [address], [place], [address], 06/28/2021 22:39:33 06/27/20 21 06/27/2021 CT/GC AND TRICH OMONA S VAGIN SHI (RRNA ), SWAB neisseria gonorrhoeae, PCR Negati ve negati ve Not Available [facility] (Lab) [address], [place], [address], 06/28/2021 22:39:33 06/27/20 21 06/27/2021 CT/GC AND TRICH OMONA S VAGIN SHI (RRNA ), SWAB trichomonas vaginalis ribosomal RNA (rrna) Negati ve negati ve Not Available [facility] (Lab) [address], [place], [address], 06/28/2021 22:39:33 06/27/20 21 06/27/2021 VAGIN ITIS/ VAGIN OSIS, DNA PROBE kelsy sp. detection, direct probe Positi ve negati ve abnormal Not Available [facility] (Lab) [address], [place], [address], 06/28/2021 22:39:33 06/27/20 21 06/27/2021 VAGIN ITIS/ VAGIN OSIS, DNA PROBE gardnerella vag. detection, direct probe Negati ve negati ve Not Available [facility] (Lab) [address], [place], [address], 06/28/2021 22:39:33 06/27/20 21 06/27/2021 VAGIN ITIS/ VAGIN OSIS, DNA PROBE trichomonas vag. detection, direct probe Negati ve negati ve Not Available [facility] (Lab) [address], [place], [address], 06/28/2021 22:39:33 06/19/20 22 06/19/2022 HEMOG LOBIN A1C hemoglobin A1C 4.9 % 0-5.6 The Ameri can Diabe rhina Ass[employer] iatio n recom mends that a prima ry goal of thera py shoul d be a HBA1C of < 7% and that physi cians shoul d reeva luate the treat ment regim en in patie nts with HBA1C value s consi stent ly > 8%. <5.7% Imelda l 5.7 - 6.4% Incre ased risk for diabe rhina >=6.5 % Diagn ostic of diabe rhina <7.0% Goal of thera py >8.0% Actio n sugge sted Not Available [facility] (Lab) [address], [place], [address], 06/20/2022 07:19:32 06/19/20 22 06/19/2022 MOBIL UNCUS MULIE RIS/C URTIS CHANTE, RT-PC R, ONE SWAB nm bkr mobiluncus mulieris and mobiluncus curtisii by RT-PCR Negati ve Swab- 1 Vag/C erv Not Available [facility] (Lab) [address], [place], [address], 06/25/2022 08:05:07 06/19/20 22 06/19/2022 BACTE RIAL VAGIN OSIS PANEL RT-PC R, ONESW AB gardnerella vaginalis PCR Positi ve abnormal Swab- 1 Vag/C erv Not Available [facility] (Lab) [address] [place], [address], 06/25/2022 08:05:07 06/19/20 22 06/19/2022 BACTE RIAL VAGIN OSIS PANEL RT-PC R, ONESW AB atopobium vaginae PCR Negati ve Swab- 1 Vag/C erv Not Available [facility] (Lab) [address] [place], [address], 06/25/2022 08:05:07 06/19/20 22 06/19/2022 BACTE RIAL VAGIN OSIS PANEL RT-PC R, ONESW AB bacterial vaginosis associated bacteria 2 (bvab2) Negati ve Swab- 1 Vag/C erv Not Available [facility] (Lab) [address] [place], [address], 06/25/2022 08:05:07 06/19/20 22 06/19/2022 BACTE RIAL VAGIN OSIS PANEL RT-PC R, ONESW AB megasphaera species (type 1 and type 2) PCR Negati ve (Type1 ,Type2 ) Swab- 1 Vag/C erv Type1 :Nega tive Type2 :Nega tive. Not Available [facility] (Lab) [address] [place], [address], 06/25/2022 08:05:07 06/19/20 22 06/19/2022 BACTE RIAL VAGIN OSIS PANEL RT-PC R, ONESW AB lactobacillu s (bvpanel) PCR See Commen t Swab- 1 Vag/C erv L.cri spatu s: Posit sue L.costa senii : Negat sue L.gas seri : Negat sue L.ine rs : Posit sue. Not Available [facility] (Lab) [address] [place], [address], 06/25/2022 08:05:07 06/19/20 22 06/19/2022 SHANNON DA VAGIN ITIS PANEL RT-PC R, ONESW AB kelsy albicans PCR Negati ve Swab- 1 Vag/C erv Not Available [facility] (Lab) [address], [place], [address], 06/25/2022 08:05:08 06/19/20 22 06/19/2022 SHANNON DA VAGIN ITIS PANEL RT-PC R, ONESW AB kelsy tropicalis PCR Negati ve Swab- 1 Vag/C erv Not Available [facility] (Lab) [address], [place], [address], 06/25/2022 08:05:08 06/19/20 22 06/19/2022 SHANNON DA VAGIN ITIS PANEL RT-PC R, ONESW AB kelsy parapsilosis PCR Negati ve Swab- 1 Vag/C erv Not Available [facility] (Lab) [address] [place], [address], 06/25/2022 08:05:08 06/19/20 22 06/19/2022 SHANNON DA VAGIN ITIS PANEL RT-PC R, ONESW AB kelsy glabrata PCR Negati ve Swab- 1 Vag/C erv Not Available [facility] (Lab) [address] [place], [address], 06/25/2022 08:05:08 06/19/20 22 06/19/2022 SHANNON DA BRANT I BY RT-PC R kelsy krusei by RT-PCR Negati ve Swab- 1 Vag/C erv Not Available [facility] (Lab) [address] [place], [address], 06/25/2022 08:05:09 06/19/20 22 06/19/2022 UROGE NITAL MYCOP LASMA /UREA PLASM A PANEL RT-PC R, ONESW AB nm bkr mycoplasma genitalium by RT-PCR Negati ve Swab- 1 Vag/C erv Not Available [facility] (Lab) [address] [place], [address], 06/25/2022 08:05:09 06/19/20 22 06/19/2022 UROGE NITAL MYCOP LASMA /UREA PLASM A PANEL RT-PC R, ONESW AB nm bkr mycoplasma hominis by RT-PCR Negati ve Swab- 1 Vag/C erv Not Available [facility] (Lab) [address], [place], [address], 06/25/2022 08:05:09 06/19/20 22 06/19/2022 UROGE NITAL MYCOP LASMA /UREA PLASM A PANEL RT-PC R, ONESW AB nm bkr ureaplasma urealyticum by RT-PCR Negati ve Swab- 1 Vag/C erv Not Available [facility] (Lab) [address], [place], [address], 06/25/2022 08:05:09 Result Notes Documentation Provider Name and Address Organization Details Recorded Time Ct + Ng + Tv, Rna, Unspecified Specimen : 06-29-21: pt informed of results mounika ramos Not Available [facility] 07/11/2023 00:35:41 Bacterial Vaginosis + Vaginitis Panel, Vaginal : 06-29-21: Pt informed. stated took the diflucan and no better. will send out another round. will take tomorrow on Day 3. if continues to have symptoms will call back friday/ to make a appt for more cultures if needed. pt understands. mounika ramos [facility] 07/05/2021 16:48:34 Procedures Surgical History Date Name Laterality Status Provider Name and Address Organization Details Recorded Time 12/13/19 19 Date of Last Pap Smear completed Maday Urbina [facility] 06/27/2021 11:38:02 07/14/19 16 Tubal Ligation completed Maday Doran [facility] 06/27/2021 11:39:40 07/14/19 15 Hernia repair w/mesh completed [facility] Carlitos [facility] 06/27/2021 11:40:06 07/14/18 98 Tonsillectomy completed Maday Urbina [facility] 06/27/2021 11:39:50 Imaging Results None recorded. Procedure Notes None recorded. Medical Equipment None Reported. Allergies Allergen ID Allergen Name Allergen Category Reaction Reaction Severity Criticality Documentation Date Start Date Code Code System Note Provider Name and Address Organization Details Recorded Time 67592 morphine medicatio n Not available Not available Not available 06/27/2021 7052 RxNorm Maday guevara, [facility] 11:37:27 06346 Reglan medicatio n Not available Not available Not available 06/27/2021 9230 RxNoevette guevara [facility] 11:37:32 77865 hydrocodo ne Not available Not available Not available Not available 06/27/2021 5489 RxNorm Maday guevara, [facility] 11:37:41 Medications Name Sig Start Date Stop Date Status Note LastModified by Organization Details LastModified Time carisoprodo l 350 mg tablet 06/27 completed Not Available Not Available Not Available buspirone 5 mg tablet 05/31 completed Not Available Not Available Not Available lamotrigine 150 mg tablet TAKE 1 TABLET BY MOUTH EVERY DAY active Not Available Not Available No t Available clonidine HCl 0.1 mg tablet 06/27 completed Not Available Not Available Not Available Stool Softener 100 mg capsule 06/27 completed Not Available Not Available Not Available fluconazole 150 mg tablet Take 1 tablet by oral route for 1 day. 05/31 completed Not Available Not Available Not Available ondansetron HCl 8 mg tablet TAKE 1 TABLET BY MOUTH EVERY 8 HOURS active Not Available Not Available No t Available fluconazole 200 mg tablet Take 1 tablet every other PO x 3 doses. 07/03 completed Not Available Not Available Not Available phenazopyri dine 200 mg tablet TAKE 1 TABLET BY ORAL ROUTE 3 TIMES EVERY DAY AFTER MEALS NEEDED FOR URINARY BURNING 05/31 completed Not Available Not Available Not Available metronidazo le 0.75 % (37.5 mg/5 gram) vaginal gel INSERT 1 APPLICATO RFUL VAGINALLY EVERY DAY AT BEDTIME FOR 5 DAYS 06/19 completed Not Available Not Available Not Available ondansetron HCl 4 mg tablet TAKE 1 TABLET BY MOUTH TWICE A DAY 05/31 completed Not Available Not Available Not Available clonazepam 1 mg tablet TAKE 1 TABLET IN THE MORNING AND TAKE TWO TABLETS AT BEDTIME active Not Available Not Available No t Available metronidazo le 500 mg tablet TAKE 1 TABLET BY MOUTH EVERY 12 HOURS WITH MEALS FOR 7 DAYS active Not Available Not Available No t Available hydroxyzine HCl 50 mg tablet TAKE 1 TABLET BY MOUTH EVERYDAY AT BEDTIME active Not Available Not Available No t Available ciprofloxac in 250 mg tablet 06/27 completed Not Available Not Available Not Available oxycodone-a cetaminophe n 5 mg-325 mg tablet 06/27 completed Not Available Not Available Not Available trazodone 100 mg tablet TAKE 1 TABLET BY MOUTH EVERYDAY AT BEDTIME active Not Available Not Available No t Available cephalexin 500 mg capsule 06/27 completed Not Available Not Available Not Available pantoprazol e 40 mg tablet,estelle yed release TAKE 1 TABLET BY MOUTH IN THE MORNING active Not Available Not Available No t Available clotrimazol e-betametha sone 1 %-0.05 % topical cream 06/27 completed Not Available Not Available Not Available fluoxetine 10 mg capsule 06/27 completed Not Available Not Available Not Available hydroxyzine HCl 25 mg tablet 06/27 completed Not Available Not Available Not Available levofloxaci n 500 mg tablet TAKE 1 TABLET EVERY 24 HOURS BY ORAL ROUTE WITH MEALS FOR 7 DAYS. active Not Available Not Available No t Available ondansetron 4 mg disintegrat ing tablet DISSOLVE 1 TABLET BY MOUTH EVERY 6 HOURS NEEDED FOR NAUSEA/VO MITING. ALLOW TABLET TO DISSOLVE ON THE TONGUE 06/27 completed Not Available Not Available Not Available cefdinir 300 mg capsule 06/27 completed Not Available Not Available Not Available sertraline 50 mg tablet 06/27 completed Not Available Not Available Not Available lamotrigine 100 mg tablet TAKE 1 TABLET BY MOUTH EVERY DAY IN THE MORNING active Not Available Not Available No t Available amoxicillin 875 mg-potassiu m clavulanate 125 mg tablet TAKE 1 TABLET BY MOUTH EVERY 12 HOURS 05/31 completed Not Available Not Available Not Available enoxaparin 40 mg/0.4 mL subcutaneou s syringe 06/27 completed Not Available Not Available Not Available nitrofurant oin monohydrate /macrocryst als 100 mg capsule TAKE 1 CAPSULE BY ORAL ROUTE EVERY 12 HOURS WITH FOOD FOR CHRONIC CYSTITIS 05/31 completed Not Available Not Available Not Available metronidazo le 1 % topical gel 06/27 completed Not Available Not Available Not Available Solosec [address] granules in packet USE DIRECTED active Not Available Not Available No t Available ID NOW COVID-19 Test Kit USE DIRECTED 06/27 completed Not Available Not Available Not Available Vitals Date Recorded Body height Body mass index (BMI) Body weight Systolic blood pressure Diastolic blood pressure Provider Name and Address Organization Details Last Updated DateTime 06/27/2021 154.94 cm 27.6 kg/m2 47085.49 g 102 mm[Hg] 68 mm[Hg] Maday Urbina [facility] 11:50:28 Date Recorded Body height Body mass index (BMI) Body weight Provider Name and Address Organization Details Last Updated DateTime 05/31/2022 154.94 cm 26.8 kg/m2 15661.12 g Rosana Sim [facility] 05/31/2022 14:19:12 Date Recorded Systolic blood pressure Diastolic blood pressure Provider Name and Address Organization Details Last Updated DateTime 05/31/2022 122 mm[Hg] 74 mm[Hg] Darshana Grayson, [facility]- [address], [place], [address], [facility] 05/31/2022 14:33:14 Date Recorded Body height Body mass index (BMI) Body weight Systolic blood pressure Diastolic blood pressure Provider Name and Address Organization Details Last Updated DateTime 06/19/2022 154.94 cm 26.6 kg/m2 15159.52 g 120 mm[Hg] 78 mm[Hg] Rosana Lo [facility] 17:11:05 Social History Question Answer Notes LastModified by Organizat ion Details LastModified Time Tobacco Smoking Status Never Smoker Maday Urbina [facility], [facility] 06/27/2021 11:39:29 Are You Blind Or Do You Have Difficulty Seeing? No Information not available 06/19/2022 Are You Deaf Or Do You Have Serious Difficulty Hearing? No Information not available 06/19/2022 What Type Of Diet Are You Following? REGULAR Information not available 06/19/2022 Sex: Unknown Functional Status Question Answer Note LastModified by Organizat ion Details LastModified Time Do you have difficulty walking or climbing stairs? No Information not available 06/19/2022 Are you able to walk? YESWOREST Information not available 06/19/2022 Are you able to care for yourself? Yes Information not available 06/19/2022 Do you have difficulty dressing or bathing? No Information not available 06/19/2022 What is your exercise level? Occasional Information not available 06/19/2022 Mental Status None recorded. Family History Relationship Description Onset Age of this Age Resolved Age Notes LastModified by Organization Details LastModified Time Mother Malignant tumor of cervix [email or web address] Not available 2020 11:39:18 Father Hypertensive disorder Not available 2020 11:39:24 Medical History Condition Response Anxiety Disorder Y History of abnormal pap Y Cancer Y Psychiatric Illness Y Depression/ depression Y Gynecological History Statement/Question Response Abnormal Pap Y Flow Moderate Date of LMP 05/18/2022 On BCP's at Conception? N Was last menstrual period normal Y STIs/STDs N HPV Vaccine N Duration of Flow (days) 7 Current Control Method Tubal Ligat ion Are cycles usually normal Y Frequency of Cycle (Q days) 30 Sexually Active? Y Menses Monthly Y Age of first menstrual cycle 13 Date of Last Pap Smear 12/12/2018 Sexual Problems? N LMP Approximate Obstetrics History GPAL:G 4 P 3 0 1 3 Type Value Full Term 3 Induced 1 Living 3 Total 4 Past Encounters Encounter ID Performer Location Encounter Start Date Encounter Closed Date Diagnosis/Indication Diagnosis SNOMED-CT Code Diagnosis ICD10 Code Diagnosis Note [id number] eSrena Morse [place] [address],[place] [address] 06/27/2021 11:08:08 06/28/2021 09:45:43 Vaginitis 90475694 N76.0 Discussed use of mild soap like dove or ivory, cotton underwear w/out dye, hypoallerg enic detergent, wipe from front to back, avoid tub baths, keep perineum clean and dry, d/c use of baby wipes. Encouraged daily intake of yogurt or womens health probiotic. Internal and external affirm collected. Will treat for suspected bv and yeast. Discussed interactio ns with medication s. Pt has taken both in the past with her current meds. [id number] Darshana Grayson , [facility] [address],[place] [address] 05/31/2022 13:52:22 05/31/2022 14:53:26 Vaginitis 82302637 N76.0 Suspect BV.Yeast prevention sentSample s of vag probiotic by ladsylvain mcdaniels given to trySTD urine sent Counseled on medication R/B's, Most common side effects, & use. All questions were answered to patient satisfacti on. Time spent in visit is a total of 15 mins with at least 50% of visit consisting of counseling and review of plan of care. [id number] Darshana Grayson , [facility] [address],[place] [address] 06/19/2022 16:53:12 06/20/2022 15:34:57 Vaginitis 67688681 N76.0 [id number] ucanIf continues to get yeast will [facility] ref [facility] clinicVCG' sExt swab sent todaysee's dr. brito from [place] for embedded urinary infection. Takes frequent abx for this issue.Has not taken recently in the last month. Time spent in visit is a total of 15 mins with at least 50% of visit consisting of counseling and review of plan of care. Health Concerns Section Related Observation LastModified by Organization Detai ls LastModified Time None Recorded Concern Status LastModified by Organization Details LastModified Time None Recorded Advance Directives Directive None Recorded Payers Encounter Date Sequence Insurance Name Policy Number Policy Khoury Covered Member ID Khoury Member ID Guarantor Name 06/27/2021 1 [place] [id number] Goldie Cota [id number] Goldie Cota 05/31/2022 1 [place] [id number] Goldie Cota [id number] Goldie Cota 06/19/2022 1 [place] [id number] Goldie Cota [id number] Goldie Cota Notes Date Note Type Note Provider Name and Address Organization Details Recorded Time 06/27/2021 text/html Vaginal/Vulvar ProblemReported bypatient.Notes:Hist ory of BV and Yeast.Odor and burning. No abnormal discharge.Has used metrogel and it is getting worse.Frequent UTI. Taking AZO. Pt is followed by urologist for this.Takes cipro when she has UTI symptoms. Serena guevara, [facility] 06/27/2021 18:17:40 05/31/2022 text/html Vaginal/Vulvar ProblemReported bypatient.Location:v agina Duration:present for 1-7 days; persistent Quality:itching (+odor, d/c, vag irritation) Severity:mild Context:sexually active Alleviating Factors:none Aggravating Factors:none Associated Symptoms:no vaginal pain; no vulvar itching/irritation; no vulvar swelling/erythema; no vulvar pain; no vulvar lesions; no pelvic pain; no dyspareunia; no dysuria; no fever; no abdominal pain;vaginal itching;vaginal irritation FRANK Arnold- [address], [place], [address], [facility] 05/31/2022 14:35:15 06/19/2022 text/html Vaginal/Vulvar ProblemReported bypatient.Location:v agina Onset/Timing:occurs after menses; abrupt Duration:present for 1-7 days Quality:itching; discharge Severity:mild Context:sexually active (monogamous); history of recurrent vaginal infections (On frequent abx for embedded UTI infection per pt) Alleviating Factors:none Aggravating Factors:none Associated Symptoms:no vaginal pain; no vulvar itching/irritation; no vulvar swelling/erythema; no vulvar pain; no vulvar lesions; no pelvic pain; no dyspareunia; no dysuria; no fever; no abdominal pain;vaginal itching;vaginal irritation; +discharge FRANK Arnold- [address], [place], [address], [facility] 06/20/2022 21:00:13 OBGyn Episode Ob Episode Information Episode Created Date Number of Fetuses Patient Bloodtype Patient rh Status Prepregnancy Weight lbs Domestic Partner Domestic Partner Phone Father Name Global Marketing Coordinator Status 06/27/20 21 1 CLOSED Fetus Data First Name Last Name Admitted to NICU Weight (g) Sex Living Outcome Pediatric Complications Fetus ID Race Codes Race Delivery Type 3883.65 [id number] Full Term [id number] Vaginal Delivery Nkiolay Calculation Initial Nikolay Date Initial Exam Date Initial Exam Provider Initial Ultrasound Date Last Menstrual Period Date Ultra Sound Weeks Gestation 0 Eighteen To Twenty Week Nikolay Update Ultra Sound Date Fundal Height At Umbil Quickening Date Ultra Sound Latest Weeks Gestation Final Nikolay Confirmed By Final Nikolay Confirmed Date Final Nikolay Date Ultra Sound Latest Days Gestation 0 0 Menstrual History Last Menstrual Date Menses Monthly On Bcp Conception Prior Menses Frequency Hcg Plus Date Menarche Onset Age Delivery Information Delivery Date Delivery Type Labor Anesthesia Weeks Gestation Incision Type Labor Labor Length Hrs Delivered By Post Complications Tubal Sterilization Discharge Date Comments 9 Discharge Information Feeding Method Contraceptive Method Maternal HG B and HCT Levels Ob Episode Information Episode Created Date Number of Fetuses Patient Bloodtype Patient rh Status Prepregnancy Weight lbs Domestic Partner Domestic Partner Phone Father Name Global Marketing Coordinator Status 06/27/20 21 1 CLOSED Fetus Data First Name Last Name Admitted to NICU Weight (g) Sex Living Outcome Pediatric Complications Fetus ID Race Codes Race Delivery Type 3798.83 3 Full Term [id number] Vaginal Delivery Nikolay Calculation Initial Nikolay Date Initial Exam Date Initial Exam Provider Initial Ultrasound Date Last Menstrual Period Date Ultra Sound Weeks Gestation 0 Eighteen To Twenty Week Nikolay Update Ultra Sound Date Fundal Height At Umbil Quickening Date Ultra Sound Latest Weeks Gestation Final Nikolay Confirmed By Final Nikolay Confirmed Date Final Nikolay Date Ultra Sound Latest Days Gestation 0 0 Menstrual History Last Menstrual Date Menses Monthly On Bcp Conception Prior Menses Frequency Hcg Plus Date Menarche Onset Age Delivery Information Delivery Date Delivery Type Labor Anesthesia Weeks Gestation Incision Type Labor Labor Length Hrs Delivered By Post Complications Tubal Sterilization Discharge Date Comments 1 Discharge Information Feeding Method Contraceptive Method Maternal HG B and HCT Levels Ob Episode Information Episode Created Date Number of Fetuses Patient Bloodtype Patient rh Status Prepregnancy Weight lbs Domestic Partner Domestic Partner Phone Father Name Global Marketing Coordinator Status 06/27/20 21 1 CLOSED Fetus Data First Name Last Name Admitted to NICU Weight (g) Sex Living Outcome Pediatric Complications Fetus ID Race Codes Race Delivery Type 2409.48 [phone] Prematur e [id number] Vaginal Delivery Nikolay Calculation Initial Nikolay Date Initial Exam Date Initial Exam Provider Initial Ultrasound Date Last Menstrual Period Date Ultra Sound Weeks Gestation 0 Eighteen To Twenty Week Nikolay Update Ultra Sound Date Fundal Height At Umbil Quickening Date Ultra Sound Latest Weeks Gestation Final Nikolay Confirmed By Final Nikolay Confirmed Date Final Nikolay Date Ultra Sound Latest Days Gestation 0 0 Menstrual History Last Menstrual Date Menses Monthly On Bcp Conception Prior Menses Frequency Hcg Plus Date Menarche Onset Age Delivery Information Delivery Date Delivery Type Labor Anesthesia Weeks Gestation Incision Type Labor Labor Length Hrs Delivered By Post Complications Tubal Sterilization Discharge Date Comments 6 PRECLAMP S IA Discharge Information Feeding Method Contraceptive Method Maternal HG B and HCT Levels Ob Episode Information Episode Created Date Number of Fetuses Patient Bloodtype Patient rh Status Prepregnancy Weight lbs Domestic Partner Domestic Partner Phone Father Name Global Marketing Coordinator Status 06/27/20 21 1 CLOSED Fetus Data First Name Last Name Admitted to NICU Weight (g) Sex Living Outcome Pediatric Complications Fetus ID Race Codes Race Delivery Type , Induced [id number] Nikolay Calculation Initial Nikolay Date Initial Exam Date Initial Exam Provider Initial Ultrasound Date Last Menstrual Period Date Ultra Sound Weeks Gestation 0 Eighteen To Twenty Week Nikolay Update Ultra Sound Date Fundal Height At Umbil Quickening Date Ultra Sound Latest Weeks Gestation Final Nikolay Confirmed By Final Nikolay Confirmed Date Final Nikolay Date Ultra Sound Latest Days Gestation 0 0 Menstrual History Last Menstrual Date Menses Monthly On Bcp Conception Prior Menses Frequency Hcg Plus Date Menarche Onset Age Delivery Information Delivery Date Delivery Type Labor Anesthesia Weeks Gestation Incision Type Labor Labor Length Hrs Delivered By Post Complications Tubal Sterilization Discharge Date Comments 5 Discharge Information Feeding Method Contraceptive Method Maternal HG B and HCT Levels
== END 2024-09-21 12:32 | disposition home or self-care (01) ==
LOC: ANHCARD 12:33
PROVIDERS: Visit Provider Internal Medicine Cardiovascular Disease
DX: I34.1 Nonrheumatic mitral (valve) prolapse (principal)
CPT/HCPCS: 93306